=== PATIENT | male | born 1950 | race Caucasian/White ===

== ENCOUNTER → 2017-06-19 | Outpatient (CLI) | payer MEDICARE, OTHER ==
[~2017-06-19] MED LIST: ASPI-84 PO; ATOR40TA PO; CTLP20T PO; PROM12.59 PO; [UNRECOGNIZED DRUG - REMARK]
== END ==
LOC: ONC 06-18 14:46
PROVIDERS: ATTEND Internal Medicine Hematology & Oncology
DX: Z08 Encounter for follow-up examination after completed treatment for malignant neoplasm (principal); Z85.810 Personal history of malignant neoplasm of tongue; E03.9 Hypothyroidism, unspecified; N18.3 Chronic kidney disease, stage 3 (moderate); F17.210 Nicotine dependence, cigarettes, uncomplicated; Z92.21 Personal history of antineoplastic chemotherapy; Z92.3 Personal history of irradiation
CPT/HCPCS: 99213

== ENCOUNTER → 2017-07-24 | Outpatient (CLI) | payer MEDICARE ==
--- NOTE | 2017-07-27 10:57 | Diagnostic Imaging Report ---
EXAMINATION: PET/CT. INDICATION: Carcinoma of the tongue. EXAMINATION: After intravenous administration of 13.34 mCi of F18-FDG, a series of overlapping emission and transmission PET images was obtained. In the coronal, transaxial, and sagittal planes, the area imaged extended from the skull base through the upper thighs. HISTORY: The previous PET/CT exam performed on 06/14/2010 noted a small area of slightly increased hypermetabolic activity along the inferior margin of the left parotid gland. This had a maximum SUV of 3.8. FINDINGS: On this study, the hypermetabolic activity along the inferior margin of the left parotid gland is again evident and does not seem to have changed significantly. The maximum SUV in this area is now 2.5. The generally stable appearance of this finding over a roughly 6 year period would suggest this is most likely benign. There is no hypermetabolic activity to suggest the presence of neoplasm. As noted on the prior exam, there is cholelithiasis but there is no sign of acute cholecystitis. The CT images also show that there is a 3.4 x 2.8 cm rounded area of low density in the left lobe of the liver near the falciform ligament. This finding was present on the prior exam at which time it measured 2.7 x 2.4 cm. There is no hypermetabolic activity associated with this finding and I do suspect it is a cyst. There are also a few other areas of slightly altered density within the right lobe of the liver. I am not certain that these have changed significantly since the prior exam either and there is no hypermetabolic activity within the liver to suggest neoplastic disease. As seen on the prior study, the heart is enlarged and there are coronary artery calcifications. There is also a small pericardial effusion. There are chronic pulmonary changes evident but there is no sign of a parenchymal lung mass. As noted on the previous exam, the left kidney is not visualized. There is a 3.3 x 3.9 cm rounded area of diminished density along the inferior pole of the right kidney. This has increased in size since the prior exam when it measured 2.9 x 2.9 cm. This lesion is not hypermetabolic and is probably related to a cyst. Even so, I would recommend that ultrasound be performed to confirm this. There is no pelvic mass or free fluid collection noted. The urinary bladder is not well-distended and consequently difficult to assess. IMPRESSION: 1. There is no hypermetabolic activity to indicate the presence of neoplastic disease. In particular, the suspected cyst involving the left lobe of the liver is not hypermetabolic. Ultrasound would be recommended to better characterize the low density lesion along the inferior pole of the right kidney. 2. The small slightly hypermetabolic nodule along the inferior margin of the left parotid gland seen previously is again evident and no different. Most likely, this is a benign process. 3. There is cholelithiasis but there is no evidence for acute cholecystitis. 4. 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 5. These results were discussed with Dr. Colindres. Dictated by: Dictated on workstation # [id number]
== END ==
LOC: RAD 10:59
PROVIDERS: ATTEND Internal Medicine Hematology & Oncology
DX: C02.9 Malignant neoplasm of tongue, unspecified (principal); K80.20 Calculus of gallbladder without cholecystitis without obstruction; K11.8 Other diseases of salivary glands; K76.89 Other specified diseases of liver; Z85.89 Personal history of malignant neoplasm of other organs and systems

== ENCOUNTER → 2017-08-06 | Outpatient (CLI) | payer MEDICARE | LOC: ONC 14:56 | PROVIDERS: ATTEND Internal Medicine Hematology & Oncology | DX: C02.9 Malignant neoplasm of tongue, unspecified (principal); E03.9 Hypothyroidism, unspecified; F17.210 Nicotine dependence, cigarettes, uncomplicated; N18.3 Chronic kidney disease, stage 3 (moderate); Z79.899 Other long term (current) drug therapy; Z92.21 Personal history of antineoplastic chemotherapy; Z92.3 Personal history of irradiation | CPT/HCPCS: 99213 ==

== ENCOUNTER → 2018-06-18 | Outpatient (CLI) | payer MEDICARE ==
[2018-06-18 13:01] LABS: BASOPHILS % (AUTO) 1 % (0-10); EOSINOPHILS # (AUTO) 0.8 10^3/uL (0.0-0.3); EOSINOPHILS % (AUTO) 16 % (0-10); HEMATOCRIT 35 % (40-54); HEMOGLOBIN 11.8 G/DL (13.3-17.7); LYMPHOCYTES # (AUTO) 0.9 X 10^3 (1.0-4.0); LYMPHOCYTES % (AUTO) 16 % (12-44); MEAN CORPUSCULAR HEMOGLOBIN 32 PG (25-34); MEAN CORPUSCULAR HGB CONC 33 G/DL (32-36); MEAN CORPUSCULAR VOLUME 96 FL (80-99); MEAN PLATELET VOLUME 9.1 FL (7.4-10.4); MONOCYTES # (AUTO) 0.5 X 10^3 (0.0-1.0); MONOCYTES % (AUTO) 9 % (0-12); NEUTROPHILS # (AUTO) 3.2 X 10^3 (1.8-7.8); NEUTROPHILS % (AUTO) 59 % (42-75); PLATELET COUNT 116 10^3/uL (130-400); RED BLOOD COUNT 3.68 10^6/uL (4.35-5.85); RED CELL DISTRIBUTION WIDTH 12.7 % (10.0-14.5); WHITE BLOOD COUNT 5.4 10^3/uL (4.3-11.0)
[2018-06-18 13:22] LABS: ALBUMIN 3.6 GM/DL (3.2-4.5); BILIRUBIN,TOTAL 0.6 MG/DL (0.1-1.0); CALCIUM 8.8 MG/DL (8.5-10.1); CREATININE SERUM 2.07 MG/DL (0.60-1.30); POTASSIUM 4.3 MMOL/L (3.6-5.0); TOTAL PROTEIN 5.8 GM/DL (6.4-8.2)
== END ==
LOC: ONC 12:30
PROVIDERS: ATTEND Internal Medicine Hematology & Oncology
DX: C02.9 Malignant neoplasm of tongue, unspecified (principal); E03.9 Hypothyroidism, unspecified; F17.210 Nicotine dependence, cigarettes, uncomplicated; N18.3 Chronic kidney disease, stage 3 (moderate); Z79.899 Other long term (current) drug therapy; Z92.21 Personal history of antineoplastic chemotherapy; Z92.3 Personal history of irradiation
CPT/HCPCS: 36415; 80053; 84443; 85025; 99213

== ENCOUNTER 2018-09-10 05:48 | Outpatient (CLI) | payer MEDICARE ==
[~2018-09-10] VITALS: Ht 190.5 cm; Wt 133.8 kg
[2018-09-10] MEDS ORDERED: LOSA1TAB3 PO (13:52)
[2018-09-10] MEDS ORDERED: LEVO137T2 PO (14:00)
[2018-09-10] MEDS ORDERED: HYDR-700 PO (14:00)
[2018-09-10] MEDS ORDERED: CARV3.122 PO (14:00)
[2018-09-10] MEDS ORDERED: ATOR40TA70 PO (14:00)
[2018-09-10] MEDS ORDERED: CITA40TA19 PO (14:00)
== END 2018-09-10 14:07 | disposition home or self-care (01) ==
LOC: PREOP 05:48
PROVIDERS: ATTEND Surgery
DX: Z01.818 Encounter for other preprocedural examination (principal)

== ENCOUNTER 2018-09-13 08:32 | Day surgery (SDC) | payer MEDICARE ==
[~2018-09-13] VITALS: Ht 190.5 cm; Wt 133.8 kg
[~2018-09-13 08:32] MED LIST changes: +ATOR40TA70 PO; +CARV3.122 PO; +CITA40TA19 PO; +HYDR-700 PO; +LEVO137T2 PO; +LOSA1TAB3 PO
[2018-09-13] MEDS ORDERED: LACTATED RINGERS 1,000 ML IV PRN (08:54)
[2018-09-13] MEDS ORDERED: ceFAZolin 2 GM IV Premixed 50 ML IV ONE (09:00)
--- NOTE | 2018-09-13 09:17 | History & Physicial ---
History of Present Illness History of Present Illness Reason for visit/HPI To undergo removal of the [id number]-k-Xecn, having completed chemotherapy Date of Admission 09/13/18 Date Seen by a Provider: Sep 13, 2018 Time Seen by a Provider: 09:15 I consulted on this patient on 09/13/18 09:15 Attending Physician Myah De León MD Admitting Physician No,Local Physician Consult Allergies and Home Medications Allergies Coded Allergies: No Known Drug Allergies (Unverified , 10/27/10) Home Medications Atorvastatin Calcium 40 Mg Tablet, 80 MG PO DAILY, (Reported) take 2 (40mg) tabs Carvedilol 3.125 Mg Tablet, 3.125 MG PO BID, (Reported) Citalopram Hydrobromide 40 Mg Tablet, 40 MG PO DAILY, (Reported) Hydroxyzine HCl 25 Mg Tablet, 25 MG PO DAILY, (Reported) Levothyroxine Sodium 137 Mcg Tablet, 137 MCG PO DAILY, (Reported) Losartan/Hydrochlorothiazide 1 Each Tablet, 1 EACH PO DAILY, (Reported) Patient Home Medication List Home Medication List Reviewed: Yes Past Mnhaqgh-Tmmvcp-Fxfwbe Hx Patient Social History Marrital Status: Employed/Student: retired Type Used: Cigarettes Recent Foreign Travel: No Contact w/other who traveled: No Recent Hopitalizations: No Seasonal Allergies Seasonal Allergies: Yes Surgeries Yes (aneursyms x2, kidney removed, hernia x2) Tonsillectomy Respiratory Yes Currently Using CPAP: Yes Cardiovascular Yes (aneurysm x2 repaired) Aneurysm, Heart Attack, Hypertension Neurological No Reproductive System Hx Reproductive Disorders: No Sexually Transmitted Disease: No Genitourinary Yes (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) Gastrointestinal Yes (HIATAL HERNIA) Gastroesophageal Reflux, Hiatal Hernia Musculoskeletal Yes Arthritis Endocrine History of Endocrine Disorders: No Endocrine Disorders: Hypothyroidsim HEENT History of HEENT Disorders: Yes (cataracts removed, dentures) Cancer Yes (SCC base tongue) Type of Treatment: Chemotherapy, Radiation Psychosocial History of Psychiatric Problem: Yes Behavioral Health Disorders: Depression Integumentary History of Skin or Integumenta: No Blood Transfusions History of Blood Disorders: No Review of Systems Constitutional: no symptoms reported EENTM: no symptoms reported Respiratory: no symptoms reported Cardiovascular: no symptoms reported Gastrointestinal: no symptoms reported Genitourinary: no symptoms reported Musculoskeletal: no symptoms reported Skin: no symptoms reported Psychiatric/Neurological: No Symptoms Reported Physical Exam Vital Signs Capillary Refill : Height, Weight, BMI Height: 6'3.00" Weight: 295lbs. 0.0oz. 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 4 removal of his port. Admission Diagnosis Admission Status: Other (Outpt Proc) MYAH DE LEÓN MD Sep 13, 2018 09:17
[2018-09-13 09:46] VITALS: BP 137/89
[2018-09-13] MEDS ORDERED: PROPOFOL INJECTION 50 ML IV ONE (10:01)
[2018-09-13] MEDS ORDERED: BUP/EPI 0.5% 1:200,000 (SENSORCAINE) 30 ML VIAL ONE (10:02)
[2018-09-13] MEDS ORDERED: fentaNYL INJECTION 100 MCG/2 ML AMP ONE (10:03)
[2018-09-13] MEDS ORDERED: MIDAZOLAM 2 MG/2 ML (VERSED) VIAL ONE (10:03)
--- NOTE | 2018-09-13 11:13 | Operative Report ---
Operative Report Date of Procedure/Surgery Sep 13, 2018 Surgeon (s) MYAH DE LEÓN MD [employer] Reproducer (s): N/A Post-Operative Diagnosis Same Procedure Performed Removal of Kcchch-v-Yesn Description of Procedure Anesthesia Type: MAC Estimated blood loss (mL): Minimal Specimen(s) collected/removed None Description of the Procedure Indication for the procedure: This gentleman came in to have his Vkwhle-b-Qojr removed, having completed chemotherapy to address squamous cell carcinoma of the base of the tongue. Informed consent was obtained after the procedure in detail. Description of the procedure: He was placed supine on the operative table and our anesthesiologist and a sedation, monitoring his vital signs. 2 g of Ancef were administered intravenously as prophylaxis against wound infection. Sequential compression devices were placed around his legs, to minimize the risk of venous thrombosis. Left chest wall was prepared and draped in the usual sterile manner. Local anesthesia was achieved using 0.5 percent Marcaine with epinephrine. A secondary incision was made along the previous scar and the [id number]-u-[id number] removed without risking air embolism. The incision was then closed using 3-0 Vicryl for the subcutaneous tissue and 4-0 Vicryl for skin, in a subcuticular fashion. He tolerated the procedure well and was taken to the recovery room in a stable condition.the Findings of the Procedure See op report Allergies and Home Medications Allergies Coded Allergies: No Known Drug Allergies (Unverified , 10/27/10) Home Medications Atorvastatin Calcium 40 Mg Tablet, 80 MG PO DAILY, (Reported) take 2 (40mg) tabs Carvedilol 3.125 Mg Tablet, 3.125 MG PO BID, (Reported) Citalopram Hydrobromide 40 Mg Tablet, 40 MG PO DAILY, (Reported) Hydroxyzine HCl 25 Mg Tablet, 25 MG PO DAILY, (Reported) Levothyroxine Sodium 137 Mcg Tablet, 137 MCG PO DAILY, (Reported) Losartan/Hydrochlorothiazide 1 Each Tablet, 1 EACH PO DAILY, (Reported) Patient Home Medication List Home Medication List Reviewed: Yes MYAH DE LEÓN MD Sep 13, 2018 11:13
[2018-09-13] MEDS ORDERED: TRAM50TA2 PO (11:15)
--- NOTE | 2018-09-13 11:16 | Discharge Inst-Simple/Standard ---
Discharge Inst-Standard Discharge Medications New, Converted or Re-Newed RX: RX on Chart Patient Instructions/Follow Up Plan of Care/Instructions/FU: Dressings off in 48 hours. To call if any concerns arise Activity as Tolerated: Yes Discharge Diet: No Restrictions MYAH DE LEÓN MD Sep 13, 2018 11:16
[2018-09-13] MEDS ORDERED: ONDANSETRON 4 MG/2 ML (SDV) Z0FRAN IVP PRN (11:30)
[2018-09-13 11:50] VITALS: BP 181/105
[2018-09-13 12:20] VITALS: BP 179/105
[2018-09-13 12:25] VITALS: BP 179/105
--- NOTE | 2018-09-13 12:31 | Anesthesia-General Post-Op ---
MAC Patient Condition Mental Status/LOC: Same as Preop Cardiovascular: Satisfactory Nausea/Vomiting: Absent Respiratory: Satisfactory Pain: Controlled Complications: Absent Post Op Complications Complications None Follow Up Care/Instructions Patient Instructions None needed. Anesthesiology Discharge Order Discharge Order Patient is doing well, no complaints, stable vital signs, no apparent adverse anesthesia problems. No complications reported per nursing. ALE MAK CRNA Sep 13, 2018 12:31
== END 2018-09-13 12:25 | disposition home or self-care (01) ==
LOC: SDC 08:32
PROVIDERS: ATTEND Surgery
DX: Z45.2 Encounter for adjustment and management of vascular access device (principal); Z85.810 Personal history of malignant neoplasm of tongue; Z92.21 Personal history of antineoplastic chemotherapy; I12.9 Hypertensive chronic kidney disease with stage 1 through stage 4 chronic kidney disease, or unspecified chronic kidney disease; N18.3 Chronic kidney disease, stage 3 (moderate); F17.210 Nicotine dependence, cigarettes, uncomplicated; G47.33 Obstructive sleep apnea (adult) (pediatric); E03.9 Hypothyroidism, unspecified; K21.9 Gastro-esophageal reflux disease without esophagitis; K44.9 Diaphragmatic hernia without obstruction or gangrene; Z79.899 Other long term (current) drug therapy
CPT/HCPCS: 87081

== ENCOUNTER → 2019-06-17 | Outpatient (CLI) | payer MEDICARE ==
[~2019-06-17] MED LIST changes: +TRAM50TA2 PO
== END ==
LOC: ONC 12:26
PROVIDERS: ATTEND Internal Medicine Hematology & Oncology
DX: E03.9 Hypothyroidism, unspecified (principal); I71.9 Aortic aneurysm of unspecified site, without rupture; D64.9 Anemia, unspecified; I10 Essential (primary) hypertension; E78.00 Pure hypercholesterolemia, unspecified; Z85.810 Personal history of malignant neoplasm of tongue; Z92.21 Personal history of antineoplastic chemotherapy; Z92.3 Personal history of irradiation; Z95.828 Presence of other vascular implants and grafts
CPT/HCPCS: 99213

== ENCOUNTER → 2020-08-30 | Outpatient (CLI) | payer MEDICARE ==
[~2020-08-30] MED LIST changes: -TRAM50TA2 PO; +TRM50T PO
[2020-08-30 10:54] LABS: BASOPHILS # (AUTO) 0.1 10^3/uL (0.0-0.1); BASOPHILS % (AUTO) 1 % (0-10); EOSINOPHILS # (AUTO) 0.9 10^3/uL (0.0-0.3); EOSINOPHILS % (AUTO) 19 % (0-10); HEMATOCRIT 32 % (40-54); HEMOGLOBIN 10.6 g/dL (13.3-17.7); LYMPHOCYTES # (AUTO) 0.7 10^3/uL (1.0-4.0); LYMPHOCYTES % (AUTO) 15 % (12-44); MEAN CORPUSCULAR HEMOGLOBIN 33 pg (25-34); MEAN CORPUSCULAR HGB CONC 33 g/dL (32-36); MEAN CORPUSCULAR VOLUME 99 fL (80-99); MEAN PLATELET VOLUME 8.8 fL (9.0-12.2); MONOCYTES # (AUTO) 0.4 10^3/uL (0.0-1.0); MONOCYTES % (AUTO) 8 % (0-12); NEUTROPHILS # (AUTO) 2.7 10^3/uL (1.8-7.8); NEUTROPHILS % (AUTO) 57 % (42-75); PLATELET COUNT 94 10^3/uL (130-400); WHITE BLOOD COUNT 4.7 10^3/uL (4.3-11.0)
[2020-08-30 11:19] LABS: ALBUMIN 3.5 GM/DL (3.2-4.5); BILIRUBIN,TOTAL 0.5 MG/DL (0.1-1.0); CALCIUM 8.5 MG/DL (8.5-10.1); CREATININE SERUM 3.12 MG/DL (0.60-1.30); POTASSIUM 4.6 MMOL/L (3.6-5.0); TOTAL PROTEIN 6.1 GM/DL (6.4-8.2)
== END ==
LOC: ONC 10:36
PROVIDERS: ATTEND Internal Medicine Hematology & Oncology
DX: C02.9 Malignant neoplasm of tongue, unspecified (principal); E03.9 Hypothyroidism, unspecified; I12.9 Hypertensive chronic kidney disease with stage 1 through stage 4 chronic kidney disease, or unspecified chronic kidney disease; E78.00 Pure hypercholesterolemia, unspecified; N18.4 Chronic kidney disease, stage 4 (severe); Z72.0 Tobacco use
CPT/HCPCS: 80053; 84443; 85025; G0463; 99213

== ENCOUNTER → 2020-09-07 | Outpatient (CLI) | payer MEDICARE ==
--- NOTE | 2020-09-07 15:05 | Diagnostic Imaging Report ---
EXAMINATION: CT Chest without contrast (lung screening). TECHNIQUE: Multiple contiguous axial images were obtained through the chest without the use of intravenous contrast according to lung cancer screening protocol. All CT scans use one or more of the following dose optimizing techniques: automated exposure control, MA and/or KvP adjustment based on a patient size and exam type, or iterative reconstruction. HISTORY: 20-tnpj-tuui history of smoking. COMPARISON: None available. FINDINGS: There is no edema or pneumonia. No pleural effusion. No pneumothorax. No suspicious nodules. Lungs are mildly emphysematous. There is no axillary or supraclavicular lymphadenopathy. There is no mediastinal lymphadenopathy. Heart size is normal. There are moderate coronary artery calcifications. No pericardial effusion. Aorta is normal in caliber. Limited views of the upper abdomen are unremarkable. There are no suspicious osseous lesions. IMPRESSION: 1. No suspicious pulmonary nodules. LUNG-RADS CATEGORY: 1 MODIFIER: None. Dictated by: Dictated on workstation # [id number]
== END ==
LOC: RAD 13:35
PROVIDERS: ATTEND Internal Medicine Hematology & Oncology
DX: C01 Malignant neoplasm of base of tongue (principal); F17.210 Nicotine dependence, cigarettes, uncomplicated
CPT/HCPCS: 71271